=== PATIENT | female | born 1975 | race Caucasian/White ===

== ENCOUNTER 2017-04-24 21:24 | Emergency (ER) | payer OTHER ==
[~2017-04-24] VITALS: Ht 152.4 cm; Wt 55.9 kg
[~2017-04-24 21:24] MED LIST: ALBUTEROL SULF8.5 GM IH; AZITHROMYCIN250 MG PO; CHANTIX1 MG PO; Cipro PO; FLEXERIL10 MG PO; Flagyl PO; LYRICA75 MG PO; MEDROL DOSEPAK4 MG PO; NAPROSYN500 MG PO; OMEPRAZOLE40 M1 PO; PERCOCET 5/31 TABLET PO; PROVERA,CYCRIN10 MG PO; ULTRAM50 MG PO; ZOFRAN4 MG PO
[2017-04-24] MEDS ORDERED: SKELAXIN800 MG PO (22:58)
[2017-04-24] MEDS ORDERED: PERCOCET 5/31 TABLET PO (22:58)
[2017-04-24] MEDS ORDERED: MOTRIN600 MG PO (22:58)
[2017-04-24 23:13] VITALS: BP 117/85
== END 2017-04-24 23:25 | disposition home or self-care (01) ==
LOC: EME 21:24
DX: M54.41 Lumbago with sciatica, right side (principal); G89.29 Other chronic pain; F17.200 Nicotine dependence, unspecified, uncomplicated; Z88.5 Allergy status to narcotic agent
CPT/HCPCS: 99281; 99284

== ENCOUNTER 2017-05-03 18:56 | Emergency (ER) | payer OTHER ==
[~2017-05-03] VITALS: Ht 152.4 cm; Wt 54.7 kg
[~2017-05-03 18:56] MED LIST changes: +MOTRIN600 MG PO; +SKELAXIN800 MG PO
[2017-05-03 19:38] LABS: ADD MIUA? YES; BILIRUBIN NEGATIVE; BLOOD NEGATIVE; COLOR YELLOW ((YELLOW)); GLUCOSE (STRIP) NEGATIVE; KETONES NEGATIVE; LEUKOCYTES NEGATIVE; NITRITE NEGATIVE; PROTEIN (STRIP) NEGATIVE; SPECIFIC GRAVITY 1.026 (1.000-1.030)
[2017-05-03 19:50] LABS: HEMATOCRIT 38.8 % (36.0-46.0); MCH 32.8 PG (29.0-34.0); MCHC 33.8 G/DL (30.0-36.0); MCV 97.2 FL (83-99); MEAN PLAT.VOLUME 10.1 uM^3 (9.5-12.4); PLATELET COUNT 202 K/uL (156-360); RBC DIS.WIDTH-CV 13.2 % (11.8-14.6); RBC DIS.WIDTH-SD 47.7 % (39-53); RED BLOOD COUNT 3.99 M/uL (3.80-5.20); WHITE BLOOD COUNT 4.2 K/uL (4.1-10.2)
[2017-05-03 19:52] LABS: BACTERIA RARE /HPF; EPITHELIAL CELLS 2+ /HPF; HYALINE CASTS 0-5 /LPF; MUCUS TRACE /LPF; RED BLOOD CELLS 0-5 /HPF (0-5); UCUL ADDED? NO; WHITE BLOOD CELLS 0-5 /HPF (0-5)
[2017-05-03 20:00] LABS: CHLORIDE 107 mEq/L (99-109); POTASSIUM 3.7 mEq/L (3.7-5.4); SODIUM 137 mEq/L (136-147)
[2017-05-03 20:03] LABS: GLUCOSE 86 mg/dL (70-99)
[2017-05-03 20:04] LABS: ANION GAP 5 MEQ/L (2-14)
[2017-05-03 20:05] LABS: TOTAL BILIRUBIN 0.3 mg/dL (0.0-1.0)
[2017-05-03 20:06] LABS: ALKALINE PHOSPHATASE 58 IU/L (3-129); GFR ESTIMATE (CALCULATED) > 59 mL/min/
[2017-05-03 20:07] LABS: UREA NITROGEN (BUN) 9 mg/dL (9-23)
[2017-05-03 20:15] LABS: QUANTITATIVE HCG < 4.0 MIU/ML
[2017-05-03] MEDS ORDERED: NORCO 7.5/321 TABLET PO (22:45)
[2017-05-03] MEDS ORDERED: MOTRIN800 MG PO (22:45)
[2017-05-03 23:13] VITALS: BP 115/58
[2017-05-03] MEDS ORDERED: PERCOCET 5/31 TABLET PO (23:24)
== END 2017-05-03 23:33 | disposition home or self-care (01) ==
LOC: EME 18:56
DX: N83.201 Unspecified ovarian cyst, right side (principal); F17.200 Nicotine dependence, unspecified, uncomplicated; Z98.51 Tubal ligation status; Z88.5 Allergy status to narcotic agent
CPT/HCPCS: 74177; 76856; 80053; 81003; 84702; 85027; 99281; 99284; J1885; J2405; J7030